=== PATIENT | female | born 1960 | race African-American/Black ===

== ENCOUNTER → 2018-10-30 | Outpatient (CLI) | payer MEDICARE ==
[~2018-10-30] MED LIST: ALDACTONE 25MG25 M1 PO; ASPIRIN 81M81 MG/TA2 PO; BUMEX2 MG PO; FOLIC ACID 11 MG/TA1 PO; GLUCOPHAGE500 MG/TAB; LASIX 20MG TABL20 MG PO; LASIX 80MG TABL80 MG PO; LOPRESSOR100 MG PO; NEPHROCAP PO; NORVASC 10MG10 MG PO; PRILOSEC 20MG20 MG PO; PROVENTIL0.09 MG/A1 IH; TOPROL XL 50MG50 MG PO; TOPROL XL100 MG PO; TUSS PO; TYLENOL 500MG500 MG PO; VITAMIN C PURE500 M1 PO; ZESTRIL 10MG10 MG PO
== END ==
LOC: COL.RAD 14:41
DX: Z11.1 Encounter for screening for respiratory tuberculosis (principal); R05 Cough

== ENCOUNTER → 2020-02-16 | Outpatient (CLI) | payer MEDICARE | LOC: ZCOL.LAB 16:53 | DX: Z20.828 Contact with and (suspected) exposure to other viral communicable diseases (principal) ==

== ENCOUNTER 2020-04-03 13:00 | Outpatient (RCR) | payer MEDICARE | END 2020-04-12 | disposition home or self-care (01) | LOC: WSST | DX: I69.951 Hemiplegia and hemiparesis following unspecified cerebrovascular disease affecting right dominant side (principal); I69.922 Dysarthria following unspecified cerebrovascular disease; E66.01 Morbid (severe) obesity due to excess calories; Z99.2 Dependence on renal dialysis ==

== ENCOUNTER 2020-07-21 16:30 | Emergency (ER) | payer MEDICARE, MEDICAID ==
[~2020-07-21] VITALS: Ht 152.4 cm; Wt 113.5 kg
[2020-07-21 16:56] VITALS: BP 139/63; TEMP 98.8
[2020-07-21] MEDS ORDERED: NORCO 325 MG-51 TAB PO (18:26)
[2020-07-21] MEDS ORDERED: CLEOCIN HCL300 MG PO (18:26)
[2020-07-21 18:37] VITALS: PULSE 82
== END 2020-07-21 18:35 | disposition home or self-care (01) ==
LOC: COL.ER 16:30
DX: S02.5XXA Fracture of tooth (traumatic), initial encounter for closed fracture (principal); I13.11 Hypertensive heart and chronic kidney disease without heart failure, with stage 5 chronic kidney disease, or end stage renal disease; K04.7 Periapical abscess without sinus; N18.6 End stage renal disease; Z99.2 Dependence on renal dialysis; Z88.2 Allergy status to sulfonamides; Z79.82 Long term (current) use of aspirin; X58.XXXA Exposure to other specified factors, initial encounter

== ENCOUNTER 2021-09-16 08:57 | Emergency (ER) | payer MEDICARE, MEDICAID ==
[~2021-09-16] VITALS: Ht 152.4 cm; Wt 111.4 kg
[~2021-09-16 08:57] MED LIST changes: +CLEOCIN HCL300 MG PO; +NORCO 325 MG-51 TAB PO
[2021-09-16 09:34] VITALS: TEMP 97.3
[2021-09-16 10:35] VITALS: BP 154/70; PULSE 74
== END 2021-09-16 10:35 | disposition home or self-care (01) ==
LOC: COL.ER 08:57
DX: M79.604 Pain in right leg (principal); I13.2 Hypertensive heart and chronic kidney disease with heart failure and with stage 5 chronic kidney disease, or end stage renal disease; N18.6 End stage renal disease; I50.9 Heart failure, unspecified; Z99.2 Dependence on renal dialysis; Z79.899 Other long term (current) drug therapy

== ENCOUNTER → 2021-09-17 | Outpatient (CLI) | payer MEDICARE, MEDICAID | LOC: COL.RAD 07:44 | DX: M79.606 Pain in leg, unspecified (principal) ==

== ENCOUNTER 2022-01-01 09:57 | Emergency (ER) | payer MEDICARE, MEDICAID ==
[~2022-01-01] VITALS: Ht 152.4 cm; Wt 115.0 kg
[2022-01-01 11:14] VITALS: TEMP 97.7
[2022-01-01] MEDS ORDERED: LOPRESSOR 225 MG/TAB PO (12:28)
[2022-01-01] MEDS ORDERED: ARICEPT 5MG PO (12:28)
[2022-01-01 13:12] VITALS: BP 145/72; PULSE 66
== END 2022-01-01 13:13 | disposition home or self-care (01) ==
LOC: COL.ER 09:57
DX: R09.89 Other specified symptoms and signs involving the circulatory and respiratory systems (principal); I13.2 Hypertensive heart and chronic kidney disease with heart failure and with stage 5 chronic kidney disease, or end stage renal disease; N18.6 End stage renal disease; I50.9 Heart failure, unspecified; Z99.2 Dependence on renal dialysis

== ENCOUNTER 2024-03-05 11:41 | Outpatient (CLI) | payer MEDICARE, MEDICAID ==
[2024-03-05] VITALS (7 sets, daily range): BP systolic 114–151; BP diastolic 39–124; PULSE 56–103; TEMP 97.7
[~2024-03-05] VITALS: Ht 152.4 cm; Wt 106.0 kg
[~2024-03-05 11:41] MED LIST changes: +ARICEPT 5MG PO; +AURYXIA1 GM PO; +LOPRESSOR 225 MG/TAB PO; +NATURAL E400 IU PO; -NORVASC 10MG10 MG PO; +NORVASC 5MG5 MG/TAB PO; +VITAMIN C500 MG PO
[2024-03-05] MEDS ORDERED: PLAVIX 75MG TAB75 MG PO (12:07)
--- NOTE | 2024-03-05 13:27 | NUR ---
See merge for all medication, assessment,intervention, and vital sign times.
[2024-03-05] MEDS ORDERED: Midazolam 2 MG/2 ML VIAL IV SCH (13:46)
[2024-03-05] MEDS ORDERED: fentaNYL 50 MCG/ML 2 ML VIAL IV SCH (13:47)
--- NOTE | 2024-03-05 14:05 | NUR ---
Daniele report completed with Linnea Sargent. Call light within reach, insertion site reviewed, first set of vitals reviewed. Linnea Sargent denies questions/concerns at this time.
--- NOTE | 2024-03-05 15:45 | NUR ---
PT TOLERATED RECOVERY PERIOD WELL. VS REMAINED WITHIN PT'S NORMAL LIMITS. DRESSING OVER LEFT FISTULA SITE REMAINED CLEAN DRY AND INTACT. PT ASSISTED TO MAIN LOBBY UPON DISCHARGE VIA WHEELCHAIR. IV DISCONTINUED AND PT VERBALIZED UNDERSTANDING OF DISCHARGE INSTRUCTIONS.
== END 2024-03-05 15:47 | disposition home or self-care (01) ==
LOC: COL.CAR 11:41
DX: T82.858A Stenosis of other vascular prosthetic devices, implants and grafts, initial encounter (principal); N18.6 End stage renal disease; Z99.2 Dependence on renal dialysis; Z87.891 Personal history of nicotine dependence
CPT/HCPCS: C1769; J1644; J2250; J3010